=== PATIENT | male | born 1960 ===

== ENCOUNTER → 2019-07-10 | Outpatient (CLI) | payer BC ==
[2019-07-10 09:30] LABS: BASOPHILS ABSOLUTE AUTO 0.03 K/mm3 (0.00-0.23); BASOPHILS PERCENT AUTO 0 % (0-2); EOSINOPHILS ABSOLUTE AUTO 0.09 K/mm3 (0.00-0.68); EOSINOPHILS PERCENT AUTO 1 % (0-6); Hematocrit 45.7 % (37.0-53.0); Hemoglobin 15.1 g/dL (13.5-17.5); IMMATURE GRAN ABSOLUTE AUTO 0.02 K/mm3 (0.00-0.10); IMMATURE GRAN PERCENT AUTO 0 % (0-1); LYMPHOCYTES ABSOLUTE AUTO 1.92 K/mm3 (0.84-5.20); LYMPHOCYTES PERCENT AUTO 25 % (21-46); MONOCYTES PERCENT AUTO 8 % (4-13); Mean Corpuscular HGB 29.2 pg (26.0-34.0); Mean Corpuscular Volume 88 fL (80-100); Mean Platelet Volume 8.9 fL (9.1-12.4); NEUTROPHILS ABSOLUTE AUTO 5.17 K/mm3 (1.96-9.15); NEUTROPHILS PERCENT AUTO 66 % (41-73); Platelet Count 243 K/mm3 (150-400); RDW Standard Deviation 45.1 fL (35.1-46.3); Red Blood Cell Count 5.18 M/mm3 (4.30-5.90); White Blood Cell Count 7.83 K/mm3 (4.00-11.30)
[2019-07-10 09:43] LABS: Alanine Aminotransfer (ALT/SGP 32 U/L (12-78); Albumin/Globulin Ratio 0.9 (0.8-1.8); Alk Phos 87 U/L (40-126); Anion Gap 12 mmol/L (6-16); Aspartate Aminotrans (AST/SGOT 22 U/L (12-37); Bilirubin, Total 0.3 mg/dL (0.1-1.0); Blood Urea Nitrogen 11 mg/dL (8-24); Bun/Creatinine Ratio 13.1 (12.0-20.0); CO2, Blood 25 mmol/L (21-32); Calcium, Blood 9.4 mg/dL (8.5-10.1); Chloride, Blood 104 mmol/L (98-108); Creatinine, Blood 0.84 mg/dL (0.60-1.20); Globulin, Blood 4.7 g/dL (2.2-4.0); Glomerular Filtration Rate >60 (60-); Glucose, Blood 112 mg/dL (70-99); Potassium, Blood 3.8 mmol/L (3.5-5.5); Sodium, Blood 141 mmol/L (136-145); Total Protein, Blood 8.7 g/dL (6.4-8.2)
== END | disposition home or self-care (01) ==
LOC: LAB SHORT 09:26 → LAB EV 09:26
PROVIDERS: Physician Assistant Medical
DX: R10.13 Epigastric pain (principal)
CPT/HCPCS: 80053; 83690; 85025

== ENCOUNTER → 2019-07-31 | Outpatient (CLI) | payer BC | END | disposition home or self-care (01) | LOC: LAB 17:52 → LAB SHORT 17:52 | DX: L02.415 Cutaneous abscess of right lower limb (principal) | CPT/HCPCS: 87070; 87077; 87147; 87186; 87205 ==

== ENCOUNTER 2020-05-30 05:58 | Day surgery (SDC) | payer BC ==
[~2020-05-30] VITALS: Ht 172.7 cm; Wt 80.0 kg
[~2020-05-30 05:58] MED LIST: Chantix1 MG PO
[2020-05-30] MEDS ORDERED: CLOP75 PO (09:45)
--- NOTE | 2020-05-30 12:02 | NUR ---
PT GETTING DRESSED AT THIS TIME. BILAT GROIN SITES AND R RADIAL SITE STABLE.
--- NOTE | 2020-05-30 12:22 | NUR ---
PT DRESSED, SITES STABLE. DISCHARGE GONE OVER WITH PT, VERBALIZES UNDERSTANDING. SALINE LOCK REMOVED WITH CATHETER INTACT. R RADIAL SITE CLEANSED AND CLOTH DOT PLACED OVER SITE ALONG WITH ARM BOARD. PT REMINDED NOT TO USE FOR THE NEXT COUPLE OF DAYS. PT TO PRIVATE VEHICLE PER W/C WITH ONE STAFF.
[2020-08-14] MEDS ORDERED: CEFD300 PO (08:45)
[2020-08-14] MEDS ORDERED: AMOCLA875 PO (11:41)
[2020-08-14] MEDS ORDERED: Norco 5-325 Ta1 EACH PO (11:46)
== END 2020-05-30 13:16 | disposition home or self-care (01) ==
LOC: MHTC 05:58
DX: I70.213 Atherosclerosis of native arteries of extremities with intermittent claudication, bilateral legs (principal); I74.09 Other arterial embolism and thrombosis of abdominal aorta; R09.89 Other specified symptoms and signs involving the circulatory and respiratory systems; F17.210 Nicotine dependence, cigarettes, uncomplicated; Z88.7 Allergy status to serum and vaccine
CPT/HCPCS: 36200; 37221; 75625; 75716; 75774; 76937; 85347; 99152; 99153; C1760; C1769; C1874; C1876; C1887; C1894; J1644; J2250; J3010; J7030; J7050; Q9967

== ENCOUNTER 2020-08-14 08:26 | Emergency (ER) | payer BC ==
[~2020-08-14] VITALS: Ht 172.7 cm; Wt 77.1 kg
== END 2020-08-14 12:53 | disposition home or self-care (01) ==
LOC: ER 08:26
DX: J36 Peritonsillar abscess (principal); Z88.4 Allergy status to anesthetic agent; F17.200 Nicotine dependence, unspecified, uncomplicated
CPT/HCPCS: 36415; 42700; 70491; 80053; 85025; 96365-59; 96375-59; 99284-25; A9270; J0295; J1100; Q9967